=== PATIENT | male | born 1990 | race Caucasian/White ===

== ENCOUNTER 2020-09-16 18:41 | Outpatient (REF) | payer OTHER, SELFPAY ==
[2020-09-18 09:36] LABS: Hepatitis B Surface Ag Negative (Negative)
[2020-09-18 10:14] LABS: HIV-1/2 Ag & Ab Screen Negative (Negative)
[2020-09-18 10:19] LABS: Hepatitis C Ab w Rflx HCV PCR Negative (Negative)
[2020-09-18 10:51] LABS: Hep B Core Antibody Negative (Negative)
[2020-09-18 11:05] LABS: HSV Type 1 Ab, IgG Negative (Negative); HSV Type 2 Ab, IgG Negative (Negative)
[2020-09-18 11:14] LABS: Syphilis Serology (RPR) Negative (Negative)
[2020-09-18 14:54] LABS: Chlamydia Result Negative (Negative); GC Result Negative (Negative)
== END 2020-09-16 18:42 | disposition home or self-care (01) ==
LOC: NCHCN 18:41
PROVIDERS: PCP Nurse Practitioner; Visit Provider Nurse Practitioner Family
DX: Z11.3 Encounter for screening for infections with a predominantly sexual mode of transmission (principal); Z11.59 Encounter for screening for other viral diseases; Z11.4 Encounter for screening for human immunodeficiency virus [HIV]
CPT/HCPCS: 86704; 86803; 87340; 87389; 87491; 87529; 87591; 86592; 86695; 86696; 86705

== ENCOUNTER 2023-06-13 15:00 | Outpatient (REF) | payer OTHER, SELFPAY ==
[2023-06-13 21:18] LABS: HCT 47.2 % (40.0-50.0); HGB 16.6 g/dL (13.5-17.5); MCH 30.3 pg (27.0-33.0); MCHC 35.2 % (32.0-36.0); MCV 86 fL (80-95); Platelet Count 123 10^3/uL (130-400); RBC 5.47 10^6/uL (4.36-5.78); RDW 11.7 % (11.8-14.1); RDW-SD 37.1 fL; WBC 5.31 10^3/uL (4.4-10.8)
[2023-06-13 21:32] LABS: Hemoglobin A1C 12.9 % (<5.7)
[2023-06-13 21:41] LABS: Albumin 3.8 g/dL (3.4-5.0); Alkaline Phosphatase 93 U/L (46-116); Anion Gap 5.9 mmol/L (3-11); BUN 15 mg/dL (7-18); CO2 30.1 mmol/L (21.0-32.0); CREATININE 1.2 mg/dL (0.70-1.30); Calcium 8.7 mg/dL (8.5-10.1); Chloride 89 mmol/L (98-107); Cholesterol 255 mg/dL (<200); Estimated GFR 82.92 (mL/min/1.73m2); HDL Cholesterol 31 mg/dL (40-60); Potassium 4.8 mmol/L (3.5-5.1); Sodium 125 mmol/L (136-145)
[2023-06-13 22:16] LABS: ALT 109 U/L (16-63); AST 35 U/L (15-37); Total Protein 5.1 g/dL (6.4-8.2)
[2023-06-13 22:17] LABS: Triglyceride 1263 mg/dL (<150)
[2023-06-13 22:26] LABS: Glucose 637 mg/dL (74-106); LDL CHOLESTEROL 125 mg/dL (<100)
== END 2023-06-13 15:01 | disposition home or self-care (01) ==
LOC: NCHCN 15:00
PROVIDERS: PCP Nurse Practitioner; Visit Provider Nurse Practitioner Family
DX: E11.9 Type 2 diabetes mellitus without complications (principal)
CPT/HCPCS: 80053; 80061; 83721; 85027; 83036

== ENCOUNTER 2023-07-15 09:25 | Emergency (ER) | payer OTHER, SELFPAY ==
--- NOTE | 2023-07-15 09:26 | ED.GENADUL_ITS ---
Discharge Plan Disposition Patient Disposition: Home Discharge Details Clinical Impression: Immunization, tetanus-diphtheria, Laceration of left palm Primary Care Provider: Saritha Bridges ED Provider: Cuco Osborne Home Meds and New Rx's Prescriptions: Continued metformin 500 mg tablet 500 mg PO BID Patient Comments: TAKE ONE TABLET BY MOUTH TWICE A DAY buspirone 10 mg tablet 10 mg PO BID Patient Comments: TAKE ONE TABLET BY MOUTH TWICE A DAY sertraline 50 mg tablet 50 mg PO DAILY Patient Comments: TAKE ONE TABLET BY MOUTH EVERY DAY Discharge Instructions Instructions: Laceration (ED) Additional Instructions: You were seen in the emergency department for your left palm laceration which was closed with 5 sutures that will need to be removed in 7 to 10 days. Please wear this brace for the next several days. As we discussed if you develop significant worsening of your pain significant swelling of your hand or any decreased range of motion in her left thumb please return to the emergency department. As we discussed, please keep your wound clean, dry and covered. Please do not soak in a tub, swim or engage in any activities which could introduce dirt into your wound. You may return to the emergency department, go to urgent care or go to your primary care provider in 7 to 10 days to have your stitches removed. As we discussed if you develop any foul-smelling drainage fevers streaking signs of infection or have any other concerns please return to the emergency department. For your pain please take medications as follows: 1. Take acetaminophen (Tylenol), 1,000 mg (two 500 mg tabs) every 6 hours [2. Take ibuprofen (Advil), 400 mg every 6 hours.] Stand Alone Forms: Work Release Discharge Data Discharge Date/Time-TO BE ENTERED AT DEPARTURE: 07/15/23 10:56 HPI General Date/Time Provider Initiated Documentation: 07/15/23 09:26 . HPI Narrative: MDM This is a afebrile mildly tachycardic [id number] 33-year-old male with left palm injury which will require primary closure. Patient did have venous oozing. Tourniquet was applied during laceration closure. No pain out of proportion to suggest necrotizing soft tissue infection. Sensation and motor function intact in left hand so I am not concerned for any flexor tendon injury. No arterial bleeding so my suspicion is low for deep palmar arch involvement. Tetanus updated. I did place patient in a removable wrist splint to ensure that he did not move his hand for the next several days in order to promote healing. We discussed return indications including any fevers foul-smelling drainage or any concerns streaking signs of infection which could indicate infection. 10:34 AM Repeat heart rate normalized. No recurrent bleeding following laceration repair. He understood his return indications and was discharged with an empiric trial of expectant outpatient management. Chronic conditions affecting the care of the patient: N/A History obtained from an outside historian: N/A Medications: Acetaminophen ibuprofen tetanus Social determinants of health affecting disposition: N/A Management discussed with: N/A Treatment/interventions considered: N/A Response to therapies provided: Control bleeding following laceration repair HPI This is a [id number] 33-year-old male arrived to the emergency department via private vehicle in the setting of a laceration he sustained to his left palm with a gill box tender approximately 45 minutes ago. Patient reports that he is not anticoagulated but did take several aspirin last night. He feels that his tetanus may have been updated 3 to 4 years ago but he is not certain. He denies any other injuries. No preceding chest pain syncope nor shortness of breath. Exam General: Well-appearing in no acute distress speaking in complete sentences. Head: Normocephalic, atraumatic. Eye: Extraocular eye movements intact. No conjunctival injection. No scleral icterus. Ear, nose, mouth, throat: Grossly normal inspection. Normal voice, handling secretions normally. Neck: Trachea midline. Cardiovascular: Well-perfused distal extremities. Respiratory: Nonlabored respiration. Gastrointestinal: Nondistended abdomen. Musculoskeletal: On the palm of the left hand just medial to the thumb in the hypothenar eminence there is an approximately 3 cm laceration with venous oozing. I placed a tourniquet and explored this wound. There is no signs of deeper arterial injury. Patient has full range of motion in his left hand across the radial, median, and ulnar nerve distributions. Full range of motion in left thumb. 2+ left radial pulse. Cap refill less than 2 seconds in the left fingertips. Skin: Normal for age and race, grossly normal temperature and turgor. No acute rash. Neurologic: Alert and appropriate, no apparent acute deficits. Psychiatric: Mood and manner are appropriate. Grooming and personal hygiene are appropriate. Related Data Home Medications Medication Instructions Recorded Confirmed buspirone 10 mg tablet 10 mg PO BID 07/15/23 07/15/23 metformin 500 mg tablet 500 mg PO BID 07/15/23 07/15/23 sertraline 50 mg tablet 50 mg PO DAILY 07/15/23 07/15/23 Allergies Allergy/AdvReac Type Severity Reaction Status Date / Time Penicillins Allergy Skin Rash Unverified 07/15/23 09:33 Procedures Laceration Laceration 1: Site: hand Side (If applicable): left Size (cm): 3 Description: linear Depth: simple, single layer Local Anesthetic: Lidocaine 2% and with Epi Amount of anesthesia used (mL): 8 Pre-repair: wound explored, irrigated extensively and deep structures in tact Skin layer closed with: nylon and other (Prolene) Size (cm): 4-0 Number of sutures: 5 Technique: simple, interrupted (Distal left arm tourniquet applied prior to laceration repair.) Medical Decision Making Quality:SDOH Health Related Social Needs: No Data to Display PFSH All Active Problems (Updated 07/15/23 @ 10:07 by Cuco Osborne MD) Laceration of left palm (Acute) Immunization, tetanus-diphtheria (Acute) Social History Smoking/Tobacco Use Status: Former Tobacco Use Smoking risk assessment performed?: Yes Drug use: Never Do you feel safe at home: Yes Do you feel safe in your relationship?: Yes
[2023-07-15 09:28] VITALS: BP 155/96; PULSE 104; RESP 16; TEMP 35.8; O2SAT 98
--- NOTE | 2023-07-15 10:01 | NUR.NOTE ---
report received and care assumed Nursing Note:
[2023-07-15] MEDS: Acetaminophen 500 MG TAB 1000 MG PO (10:18)
[2023-07-15] MEDS: Ibuprofen 600 MG TAB PO (10:19)
[2023-07-15 10:29] VITALS: BP 138/88; PULSE 88; RESP 18; TEMP 36.7; O2SAT 94
== END 2023-07-15 10:56 | disposition home or self-care (01) ==
PROVIDERS: Emergency Provider Emergency Medicine; PCP Nurse Practitioner
DX: S61.412A Laceration without foreign body of left hand, initial encounter (principal); W26.0XXA Contact with knife, initial encounter; Z23 Encounter for immunization
CPT/HCPCS: 12002; 90471; 90715

== ENCOUNTER 2023-07-18 21:19 | Outpatient (REF) | payer OTHER, SELFPAY ==
[2023-07-18 22:32] LABS: Hemoglobin A1C 11.8 % (<5.7)
== END 2023-07-18 21:20 | disposition home or self-care (01) ==
LOC: NCHCN 21:19
PROVIDERS: PCP Nurse Practitioner; Visit Provider Nurse Practitioner Family
DX: E11.9 Type 2 diabetes mellitus without complications (principal)
CPT/HCPCS: 80053; 85027; 83036

== ENCOUNTER 2023-09-19 15:19 | Outpatient (REF) | payer OTHER, SELFPAY ==
[2023-09-19 16:13] LABS: COMMENT (LAB VIEW ONLY) 155.42 mg/dL; Microalb ug/mg Crea 3.9 ug/mg Cr
== END 2023-09-19 15:20 | disposition home or self-care (01) ==
LOC: NCHCN 15:19
PROVIDERS: PCP Nurse Practitioner Family; Visit Provider Nurse Practitioner Family
DX: E11.9 Type 2 diabetes mellitus without complications (principal)
CPT/HCPCS: 82043; 82570

== ENCOUNTER 2023-12-14 19:26 | Outpatient (REF) | payer OTHER, SELFPAY ==
[2023-12-14 18:11] LABS: ALT 44 U/L (16-63); AST 26 U/L (15-37); Albumin 3.9 g/dL (3.4-5.0); Alkaline Phosphatase 47 U/L (46-116); BUN 17 mg/dL (7-18); CREATININE 1.1 mg/dL (0.70-1.30); Calcium 8.7 mg/dL (8.5-10.1); Calculated LDL 125 mg/dL (<100); Chloride 102 mmol/L (98-107); Cholesterol 201 mg/dL (<200); Estimated GFR 92.04 (mL/min/1.73m2); Glucose 120 mg/dL (74-106); HDL Cholesterol 45 mg/dL (40-60); Potassium 4.4 mmol/L (3.5-5.1); Sodium 140 mmol/L (136-145); Total Protein 7.2 g/dL (6.4-8.2); Triglyceride 156 mg/dL (<150)
--- OUTSIDE RECORDS SUMMARY | 2023-12-14 19:27 | XMS_ITS | Encounter Summary ---
Author Organization [facility] Address [address] [place] [address] Care Team Providers Care Building Operator Name Role Phone Unavailable Primary Care Provider Unavailabl e Encounter Details Date Type Department Care Team (Late st Contact Info) Description 09/17/2020 Lab Requisition [facility] Pathology & Laboratory Medicine - [address] [address] Outr Resulting Lab, Provider Social History Tobacco Use Types Packs/Day Years Used Date Smoking Tobacco: Never Assessed Interpersonal Safety Answer Date Record ed Physically Hurt Never 09/17/2020 Verbally Threaten Not on file 09/17/2020 Sex and Gender Information Value Date Recorded Sex Assigned at Not on file Gender Identity Not on file Sexual Orientation Not on file documented as of this encounter Plan of Treatment Not on file documented as of this encounter Procedures Procedure Name Priority Date/Time Associated Diagnosis Comments HEPATITIS C AB W REFLEX TO HCV RNA BY PCR Routine 09/16/2020 14:00 EDT HEPATITIS B SURFACE ANTIGEN Routine 09/16/2020 14:00 EDT documented in this encounter Results * HEPATITIS B SURFACE ANTIGEN (09/16/2020 14:00 EDT) Hep B Surface Ag Negative Negative 09/18/2020 9:[address] [facility] Blood VENOUS BLOOD / Unknown 09/16/2020 14:00 EDT 09/17/2020 16:47 EDT Provider Outr Resulting Lab CHEMISTRY & BLOOD GAS ORDERABLES [facility] [address] [place] [address] * HEPATITIS C AB W REFLEX TO HCV RNA BY PCR (09/16/2020 14:00 EDT) Hep C Antibody Negative Negative 09/18/2020 10:[address] [facility] Blood VENOUS BLOOD / Unknown 09/16/2020 14:00 EDT 09/17/2020 16:47 EDT Provider Outr Resulting Lab CHEMISTRY & BLOOD GAS ORDERABLES [facility] [address] [place] [address] documented in this encounter Visit Diagnoses Not on filedocumented in this encounter
--- OUTSIDE RECORDS SUMMARY | 2023-12-14 19:27 | XMS_ITS | Encounter Summary ---
Author Organization [facility] Address [address] [place] [address] Care Team Providers Care Braided Rug Maker Name Role Phone Unavailable Primary Care Provider Unavailabl e Encounter Details Date Type Department Care Team (Late st Contact Info) Description 09/17/2020 Lab Requisition [facility] Pathology & Laboratory Medicine - [address] [address] Outr Resulting Lab, Provider Social History Tobacco [...] Procedure Name Priority Date/Time Associated Diagnosis Comments HERPES SIMPLEX VIRUS (HSV) TYPE 1 & 2 AB, IGG Routine 09/16/2020 14:00 EDT documented in this encounter Results * HERPES SIMPLEX VIRUS (HSV) TYPE 1 & 2 AB, IGG (09/16/2020 14:00 EDT) HSV Type 1 Ab, IgG Negative Negative 09/18/2020 11:00 EDT [facility] Comment: No detectable antibodies to HSV 1 were found. A negative result generally indicates that the patient has not been infected, but does not always rule out acute HSV infection. If clinical exposure to HSV is suspected despite a negative finding a second sample should be collected and tested no less than 4-6 weeks later. HSV Type 2 Ab, IgG Negative Negative 09/18/2020 11:00 EDT [facility] Comment: No detectable antibodies to HSV 2 were found. A negative result generally indicates that the patient has not been infected, but does not always rule out acute HSV infection. If clinical exposure to HSV is suspected despite a negative finding a second sample should be collected and tested no less than 4-6 weeks later. Blood VENOUS BLOOD / Unknown 09/16/2020 14:00 EDT 09/17/2020 16:46 EDT Provider Outr Resulting Lab IMMUNOLOGY A ND SEROLOGY ORDERABLES [facility] [address] [place] [address] documented in this encounter Visit Diagnoses Not on filedocumented in this encounter
--- OUTSIDE RECORDS SUMMARY | 2023-12-14 19:27 | XMS_ITS | Clinical Summary ---
Author Organization [facility] Address [address] [place] [address] Care Team Providers Care Cable Engineer Outside Plant Name Role Phone Unavailable Primary Care Provider Unavailabl e Social History Tobacco Use Types Packs/Day Years Used Date Smoking Tobacco: Never Assessed Interpersonal Safety Answer Date Record ed Physically Hurt Never 09/17/2020 Verbally Threaten Not on file 09/17/2020 Sex and Gender Information Value Date Recorded Sex Assigned at Not on file Gender Identity Not on file Sexual Orientation Not on file Plan of Treatment Health Maintenance Due Date Last Done Comments Hepatitis B Vaccine (1 of 3 - 19+ 3-dose series) 03/30 COVID-19 Vaccine (2022- season) 2023 Hepatitis C Screen Completed 09/16/2020 Procedures Procedure Name Priority Date/Time Associated Diagnosis Comments HEPATITIS C AB W REFLEX TO HCV RNA BY PCR Routine 09/16/2020 14:00 EDT from Last 3 Months or Most Recently Relevant to Health Maintenance Results * HEPATITIS C AB W REFLEX TO HCV RNA BY PCR (09/16/2020 14:00 EDT) Hep C Antibody Negative Negative 09/18/2020 10:14 EDT [facility] Blood VENOUS BLOOD / Unknown 09/16/2020 14:00 EDT 09/17/2020 16:47 EDT Provider Outr Resulting Lab CHEMISTRY & BLOOD GAS ORDERABLES [facility] [address] [place] [address] from Last 3 Months or Most Recently Relevant to Health Maintenance
--- OUTSIDE RECORDS SUMMARY | 2023-12-14 19:27 | XMS_ITS | Encounter Summary ---
Author Organization [facility] Address [address] [place] [address] Care Team Providers Care Pricing/Signage Team Member Name Role Phone Unavailable Primary Care Provider Unavailabl e Encounter Details Date Type Department Care Team (Late st Contact Info) Description 09/17/2020 Lab Requisition [facility] Pathology & Laboratory Medicine - [facility] [address] [place] [address] Outr Resulting Lab, Provider Social History Tobacco [...] Name Priority Date/Time Associated Diagnosis Comments HEPATITIS B CORE ANTIBODY (TOTAL) Routine 09/16/2020 14:00 EDT documented in this encounter Results * HEPATITIS B CORE ANTIBODY (TOTAL) (09/16/2020 14:00 EDT) Hepatitis B Core Ab, Total Negative Negative 09/18/2020 10:46 EDT [facility] Blood VENOUS BLOOD / Unknown 09/16/2020 14:00 EDT 09/17/2020 16:47 EDT Provider Outr Resulting Lab CHEMISTRY & BLOOD GAS ORDERABLES [facility] [address] [place] [address] documented in this encounter Visit Diagnoses Not on filedocumented in this encounter
--- OUTSIDE RECORDS SUMMARY | 2023-12-14 19:27 | XMS_ITS | Encounter Summary ---
Author Organization [facility] Address [address] [place] [address] Care Team Providers Care Molasses Feed Mixer Name Role Phone Unavailable Primary Care Provider Unavailabl e Encounter Details Date Type Department Care Team (Late st Contact Info) Description 09/17/2020 Lab Requisition [facility] Pathology & Laboratory Medicine - [facility] [place] [address] [place] [address] Outr Resulting Lab, Provider Social History Tobacco [...] Procedure Name Priority Date/Time Associated Diagnosis Comments CHLAMYDIA/N. GONORRHOEAE AMPLIFIED NUCLEIC ACID Routine 09/16/2020 14:00 EDT documented in this encounter Results * CHLAMYDIA/N. GONORRHOEAE AMPLIFIED RNA (09/16/2020 14:00 EDT) Neisseria gonorrhoeae Result Negative Negative 09/18/2020 14:50 EDT [facility] Chlamydia trachomatis Result Negative Negative 09/18/2020 14:50 EDT [facility] Urine URINE / Unknown 09/16/2020 1 4:00 EDT 09/17/2020 19:47 EDT Provider Outr Resulting Lab MICROBIOLOGY - GENERAL ORDERABLES [facility] [address] [place] [address] documented in this encounter Visit Diagnoses Not on filedocumented in this encounter
--- OUTSIDE RECORDS SUMMARY | 2023-12-14 19:27 | XMS_ITS | Encounter Summary ---
Author Organization [facility] Address [address] [place] [address] Care Team Providers Care Software Trainer Name Role Phone Unavailable Primary Care Provider Unavailabl e Encounter Details Date Type Department Care Team (Late st Contact Info) Description 09/17/2020 Lab Requisition [facility] Pathology & Laboratory Medicine - [facility] [address] [place] [address] Outr Resulting Lab, Provider Social History Tobacco [...] Procedure Name Priority Date/Time Associated Diagnosis Comments SYPHILIS SEROLOGY Routine 09/16/2020 14: 00 EDT documented in this encounter Results * SYPHILIS SEROLOGY (09/16/2020 14:00 EDT) Syphilis Serology Negative Negative 09/18/2020 11:08 EDT [facility] Blood VENOUS BLOOD / Unknown 09/16/2020 14:00 EDT 09/17/2020 16:47 EDT Provider Outr Resulting Lab IMMUNOLOGY A ND SEROLOGY ORDERABLES [facility] [address] [place] [address] documented in this encounter Visit Diagnoses Not on filedocumented in this encounter
--- OUTSIDE RECORDS SUMMARY | 2023-12-14 19:27 | XMS_ITS | Encounter Summary ---
Author Organization [facility] Address [address] [place] [id number] Care Team Providers Care Roping Tender Name Role Phone Unavailable Primary Care Provider Unavailabl e Encounter Details Date Type Department Care Team (Late st Contact Info) Description 09/17/2020 Lab Requisition [facility] Pathology & Laboratory Medicine - [address] [address] Outr Resulting Lab, Provider Social History Tobacco [...] Procedure Name Priority Date/Time Associated Diagnosis Comments HIV 1/2 ANTIGEN AND ANTIBODY, 4TH GENERATION Routine 09/16/2020 14:00 EDT documented in this encounter Results * HIV 1/2 ANTIGEN AND ANTIBODY, 4TH GENERATION (09/16/2020 14:00 EDT) HIV 1 and 2 Antibody/p24 Antigen, 4th Generation Negative Negative 09/18/2020 10:09 EDT [facility] Comment: If acute HIV-1 infection is suspected in a high risk ??patient, submit plasma specimen for HIV-1 RNA quantitation test. Fourth Generation assay performed on the Siemens Centaur. Blood VENOUS BLOOD / Unknown 09/16/2020 14:00 EDT 09/17/2020 16:47 EDT Provider Outr Resulting Lab IMMUNOLOGY A ND SEROLOGY ORDERABLES [facility] [address] [place] [address] documented in this encounter Visit Diagnoses Not on filedocumented in this encounter
--- OUTSIDE RECORDS SUMMARY | 2023-12-14 19:27 | XMS_ITS | Referral Summary ---
Author Organization [facility] Address [address] [place] [address] Care Team Providers Care Assistant Director Of Financial Aid Name Role Phone Unavailable Primary Care Provider [...] Orientation Not on file Plan of Treatment Not on file Procedures Procedure Name Priority Date/Time Associated Diagnosis Comments HEPATITIS C AB W REFLEX TO HCV RNA BY PCR Routine 09/16/2020 14:00 EDT from Last 3 Months or Most Recently Relevant to Health Maintenance Results * HEPATITIS C AB W REFLEX TO HCV RNA BY PCR (09/16/2020 14:00 EDT) Hep C Antibody Negative Negative 09/18/2020 10:14 EDT [facility] Blood VENOUS BLOOD / Unknown 09/16/2020 14:00 EDT 09/17/2020 16:47 EDT Provider Outr Resulting Lab CHEMISTRY & BLOOD GAS ORDERABLES [facility] [address] [place] [address] from Last 3 Months or Most Recently Relevant to Health Maintenance
== END 2023-12-14 19:27 | disposition home or self-care (01) ==
LOC: NCHCN 19:26
PROVIDERS: PCP Nurse Practitioner Family; Visit Provider Nurse Practitioner Family
DX: R74.01 Elevation of levels of liver transaminase levels (principal); E78.2 Mixed hyperlipidemia
CPT/HCPCS: 80053; 80061

== ENCOUNTER 2024-09-11 16:59 | Outpatient (REF) | payer OTHER, SELFPAY | END 2024-09-11 17:00 | disposition home or self-care (01) | LOC: NCHCN 16:59 | PROVIDERS: PCP Nurse Practitioner Family; Visit Provider Nurse Practitioner Family | DX: E11.9 Type 2 diabetes mellitus without complications (principal) | CPT/HCPCS: 82043; 82570 ==

== ENCOUNTER 2024-12-11 18:53 | Outpatient (REF) | payer OTHER, SELFPAY ==
[2024-12-11 21:37] LABS: ALT 62 U/L (16-63); AST 31 U/L (15-37); Albumin 4.2 g/dL (3.4-5.0); Alkaline Phosphatase 58 U/L (46-116); Anion Gap 6.5 mmol/L (3-11); BUN 14 mg/dL (7-18); Bilirubin, Total 1.0 mg/dL (0.2-1.0); CO2 31.5 mmol/L (21.0-32.0); Calcium 9.5 mg/dL (8.5-10.1); Calculated LDL 113 mg/dL (<100); Chloride 100 mmol/L (98-107); Cholesterol 196 mg/dL (<200); Estimated GFR 82.40 (mL/min/1.73m2); Glucose 115 mg/dL (74-106); HDL Cholesterol 41 mg/dL (>or=40); Potassium 4.3 mmol/L (3.5-5.1); Sodium 138 mmol/L (136-145); Total Protein 7.4 g/dL (6.4-8.2); Triglyceride 211 mg/dL (<150)
== END 2024-12-11 18:54 | disposition home or self-care (01) ==
LOC: NCHCN 18:53
PROVIDERS: PCP Nurse Practitioner Family; Visit Provider Nurse Practitioner Family
DX: E11.9 Type 2 diabetes mellitus without complications (principal); E78.5 Hyperlipidemia, unspecified
CPT/HCPCS: 80053; 80061